=== PATIENT | female | born 1985 | race Caucasian/White ===

== ENCOUNTER 2016-05-04 14:00 | Observation (INO) | payer MEDICAID ==
[~2016-05-04] VITALS: Ht 175.3 cm; Wt 82.2 kg
[2016-05-04] VITALS (12 sets, daily range): BP systolic 119–141; BP diastolic 59–81
[2016-05-04 15:01] LABS: BASOPHILS # (AUTO) 0.1 10^3/uL (0.0-0.1); BASOPHILS % (AUTO) 0 % (0-10); EOSINOPHILS # (AUTO) 0.1 10^3/uL (0.0-0.3); EOSINOPHILS % (AUTO) 1 % (0-10); LYMPHOCYTES # (AUTO) 2.3 X 10^3 (1.0-4.0); LYMPHOCYTES % (AUTO) 13 % (12-44); MEAN CORPUSCULAR HEMOGLOBIN 29 PG (25-34); MEAN CORPUSCULAR HGB CONC 33 G/DL (32-36); MEAN CORPUSCULAR VOLUME 89 FL (80-99); MEAN PLATELET VOLUME 10.3 FL (7.4-10.4); MONOCYTES # (AUTO) 1.6 X 10^3 (0.0-1.0); MONOCYTES % (AUTO) 9 % (0-12); NEUTROPHILS # (AUTO) 14.1 X 10^3 (1.8-7.8); NEUTROPHILS % (AUTO) 78 % (42-75); PLATELET COUNT 301 10^3/uL (130-400); RED BLOOD COUNT 3.24 10^6/uL (4.35-5.85); RED CELL DISTRIBUTION WIDTH 12.7 % (10.0-14.5); WHITE BLOOD COUNT 18.1 10^3/uL (4.3-11.0)
[2016-05-04] MEDS ORDERED: FLU TRIvalent (5 YOA+) 2016-17 (AFLURIA) 0.5 ML IM ONE (15:15)
[2016-05-04] MEDS ORDERED: ONDANSETRON 4 MG/2 ML (SDV) Z0FRAN IVP ONE (16:45)
--- NOTE | 2016-05-04 16:52 | History & Physical-OB ---
OB - Chief Complaint & HPI Date Date of Admission: Date of Admission: May 04, 2016 at 2:00 pm Chief Complaint/History Hx : 3 Hx Para: 2 Expected Date of Delivery: May 23, 2016 Gestational Age in Weeks: 37 Other reason for admission: Regular uterine contractions and cervical dilation on exam in office with history of still at 36 weeks, and abnormal quad screen. GBS + and patient lives in [place]. Admission Nurse Assessment Rev: Yes History of Labs AB pos Antibody neg RI RPR NR HB and HCsAg NR HIV NR GC neg GBS + Allergies and Home Medications Allergies Coded Allergies: No Known Drug Allergies (Unverified , 05/04/16) OB - History Hx of Present Care: Yes Ultrasounds: Normal mid trimester US Obstetrical Complications: Other (abnormal quad screen) Medical Complications: None Obstetrical History Hx : 3 Hx Para: 2 Hx Total # of Abortions (Spona: 0 Patient Past Medical History n/a Social History/Family History Recent Infectious Disease Expo: No OB - Admission Exam Physical Exam Vitals: Vital Signs 05/04/16 05/04/16 14:05 15:00 Temp 97.5 Pulse 82 Resp 20 B/P (MAP) 132/75 O2 Delivery Room Air HEENT: NCAT Heart: Rhythm Normal Lungs: Clear Abdomen: Gravid Extremities: Normal Reflexes: Normal Cervical Dilatation: 3cm Effacement: 50% Station: -2 Membranes: Intact Heart Rate: 130's Accelerations: Accelerations Present Decelerations: No Decelerations Short Term Variability: Present Fdc Variability: Average (6-25) Contractions on Admission: < 5 Minutes Apart Intensity: Moderate Labs Laboratory Tests Test 05/04/16 14:37 Range/Units White Blood Count 18.1 H 4.3-11.0 10^3/uL Red Blood Count 3.24 L 4.35-5.85 10^6/uL Hemoglobin 9.4 L 11.5-16.0 G/DL Hematocrit 29 L 35-52 % Mean Corpuscular Volume 89 80-99 FL Mean Corpuscular Hemoglobin 29 25-34 PG Mean Corpuscular Hemoglobin Concent 33 32-36 G/DL Red Cell Distribution Width 12.7 10.0-14.5 % Platelet Count 301 130-400 10^3/uL Mean Platelet Volume 10.3 7.4-10.4 FL Neutrophils (%) (Auto) 78 H 42-75 % Lymphocytes (%) (Auto) 13 12-44 % Monocytes (%) (Auto) 9 0-12 % Eosinophils (%) (Auto) 1 0-10 % Basophils (%) (Auto) 0 0-10 % Neutrophils # (Auto) 14.1 H 1.8-7.8 X 10^3 Lymphocytes # (Auto) 2.3 1.0-4.0 X 10^3 Monocytes # (Auto) 1.6 H 0.0-1.0 X 10^3 Eosinophils # (Auto) 0.1 0.0-0.3 10^3/uL Basophils # (Auto) 0.1 0.0-0.1 10^3/uL OB - Assessment/Plan/Diagnosis Assessment Assessment: active labor, group B positive strep Plan Plan: Expectant Management Discharge Diagnosis Diagnosis: 30 yo ,1,1,1 Hx of Stillbirth Abnormal quad GBS + FENECH,PANDA Knowles DO May 04, 2016 4:52 pm
[2016-05-04] MEDS ORDERED: FAMO-119 PO (19:12)
[2016-05-04] MEDS ORDERED: ONDN4T PO (19:16)
[2016-05-05] VITALS (8 sets, daily range): BP systolic 117–131; BP diastolic 59–73
--- NOTE | 2016-05-05 09:19 | Progress Note-Standard ---
Standard Progress Note Progress Notes/Assess & Plan Progress/Assessment & Plan Patient comfortably sleeping this morning, reports that contractions have subsided. NST reactive overnight with irregular contractions noted. I discussed the patient discharge, and return to care immediately if any signs of labor should occur for GBS prophylaxis. The patient demonstrates understanding and will return to care in 1 week for visit or earlier if labor symptoms should occur. PANDA MOREL DO May 05, 2016 09:19
--- OUTSIDE RECORDS SUMMARY | 2016-05-19 18:19 | XMS REPORT | Continuity of Care Document ---
Author Author [facility] Organization [facility] Address Unknown Phone Unavailable Allergies Medications Problems Procedures Results Encounters ACCT No. Visit Date/Time Discharge Status Pt. Type Provider Facility Loc./Unit Complaint [id number] 01/05/2015 16:16:23 01/05/2015 23: 59:59 CLS Outpatient Juany Almaraz [id number] 09/17/2014 21:53:31 09/17/2014 23: 59:59 CLS Outpatient Anais Garcia [id number] 09/17/2014 21:43:50 09/17/2014 23: 59:59 CLS Outpatient Helen Prakash [id number] 02/16/2014 10:13:35 02/16/2014 23: 59:59 CLS Outpatient Helen Prakash [id number] 11/28/2013 15:59:12 11/28/2013 23: 59:59 CLS Outpatient Anais Garcia [id number] 10/09/2015 17:35:53 ACT Outpatient Fabiola Webster [id number] 10/02/2015 11:32:24 ACT Outpatient Anais Garcia
--- OUTSIDE RECORDS SUMMARY | 2016-05-19 18:20 | XMS REPORT | CCD ---
Author Author ABHISHEK DAVIS Organization Unknown Address [address] [place] [address] Care Team Providers Care Tool Procurement Coordinator Name Role Phone LIM, OLAMIDE DO Attphys LIM, OLAMIDE DO Prisurg Allergies Allergy Code Allergy Type Reaction Status No Known Allergies 0 Drug allergy Active Active Medications Unknown or Not Available. Problems Unknown or Not Available. Procedures Unknown or Not Available. Results Unknown or Not Available. Function Status Unknown or Not Available. History of Immunizations Immunization Code Date DTP 12/26/1986 DTP 02/24/1987 DTP 04/25/1987 DTP 01 05/11/1990 OPV 02 12/26/1986 OPV 02 02/24/1987 OPV 02 04/25/1987 OPV 02 05/11/1990 MMR 03 05/11/1990 MMR 03 09/15/1990 Hep B, adolescent or pediatric 08 01/16/2002 influenza, split (incl. purified surface antigen) 15 01/08/2010 DTaP-Hep B-IPV 110 08/09/2001 Tdap 115 01/08/2010 Plan of Treatment Unknown or Not Available. Social History Smoking Status Code Start Date End Date Former smoker [id number] Vital Signs Unknown or Not Available. Function Status Unknown or Not Available. Goals Unknown or Not Available. ASSESSMENTS Unknown or Not Available. Health Concerns Section Unknown or Not Available.
--- OUTSIDE RECORDS SUMMARY | 2016-05-19 18:20 | XMS REPORT ---
Author Author Anais Garcia [facility] Address [address] [place], [place] [id number] Care Team Providers Care Oral Surgery Technician Name Role Phone Anais Garcia PCP Unavailable Allergies and Adverse Reactions Name Reaction Notes NO KNOWN DRUG ALLERGIES Plan of Treatment Planned Activity Comments Planned Date Planned Time Plan/Goal CYTOPATH C/V THIN LAYER 10/02/2015 12:00 AM N.GONORRHOEAE DNA AMP PROB 10/02/2015 12:00 AM CHLAMYDIA CULTURE 10/02/2015 12:00 AM HIV-1ANTIBODY 10/02/2015 12:00 AM URINALYSIS AUTO W/SCOPE 10/02/2015 12:00 AM OBSTETRIC PANEL 10/02/2015 12:00 AM HEPATITIS C AB TEST 10/02/2015 12:00 AM VARICELLA-ZOSTER ANTIBODY 10/02/2015 12:00 AM Medications Name Start Date Expiration Date SIG Comments Zithromax Z-Jase 250 mg oral tablet 04/07/2010 04/12/2010 Take 2 tablets the first day (500 mg) followed by 1 tablet (250 mg) days 2-5. for 5 days Augmentin 875-125 mg oral tablet 05/12/2012 05/22/2012 take 1 tablet by oral route every 12 hours for 10 days clindamycin HCl 300 mg oral capsule 05/17/2012 05/27/2012 take 1 capsule (300 mg) by oral route every 6 hours for 10 days Cipro 500 mg oral tablet 07/05/2014 07/10/2014 take 1 tablet (500 mg) by oral route 2 times per day for 5 days Discontinued Name Start Date Discontinued Date SIG Comments hydrocodone-acetaminophen 5-325 mg oral tablet 05/16/2012 11/28/2013 take 1 tablet by oral route every 6 hours as needed for pain Mirena 20 mcg/24 hr (5 years) intrauterine intrauterine device 10/02/2015 Zoloft 50 mg oral tablet 02/16/2014 07/05/2014 take 1 tablet (50 mg) by oral route once daily increase Zoloft 100 mg oral tablet 10/02/2015 take 1 tablet (100 mg) by oral route once daily Problem List Description Status Onset Contraceptive education Active 07/19/2014 Vital Signs Date Time BP-Sys(mm[Hg] BP-Rosa(mm[Hg]) HR(bpm) RR(rpm) Temp WT HT HC BMI BSA BMI Percentile O2 Sat(%) 10/02/2015 10:37:00 AM 119 mmHg 72 mmHg 87 bpm 18 rpm 98.5 F 156 lbs 68 in 23.72 kg/m2 1.84 m2 07/19/2014 1:32:00 PM 118 mmHg 75 mmHg 80 bpm 18 rpm 98.2 F 143.125 lbs 68 in 21.7619 kg/m 1.7649 m 07/05/2014 2:07:00 PM 98 mmHg 68 mmHg 79 bpm 18 rpm 97.2 F 141 lbs 68 in 21.44 kg/m2 1.75 m2 99 % 02/16/2014 9:19:00 AM 100 mmHg 72 mmHg 77 bpm 18 rpm 97.5 F 137 lbs 68 in 20.8306 kg/m 1.7267 m 99 % 11/28/2013 3:23:00 PM 117 mmHg 77 mmHg 87 bpm 18 rpm 98.7 F 141 lbs 68 in 21.44 kg/m2 1.75 m2 05/18/2012 4:42:00 PM 120 mmHg 66 mmHg 70 bpm 16 rpm 97.4 F 05/16/2012 4:16:00 PM 97 bpm 18 rpm 98.6 F 174 lbs 68 in 26.4563 kg/m 1.95 m2 97 % 05/12/2012 2:38:00 PM 81 bpm 20 rpm 97.8 F 174.6 lbs 68 in 26.55 kg/m2 1.9493 m 97 % 04/07/2010 3:11:00 PM 110 mmHg 70 mmHg 111 bpm 16 rpm 99.6 F 148.312 lbs 68 in 22.5506 kg/m 1.80 m2 98 % Social History Name Description Comments Tobacco Former smoker History of Procedures Date Ordered Description Order Status 10/02/2015 11:59 AM URINE TEST Reviewed 05/12/2012 12:00 AM THER/PROPH/DIAG INJ SC/IM Reviewed 05/12/2012 12:00 AM Decadron, Per 1 Mg [facility]# [address]-19 Reviewed 05/12/2012 12:00 AM Depo-Medrol, Per 80 Mg [facility]#5958-9059-50 Reviewed 05/12/2012 12:00 AM Rocephin 500 Mg [facility]#7063-0491-98 Reviewed 05/16/2012 12:00 AM THER/PROPH/DIAG INJ SC/IM Reviewed 05/16/2012 12:00 AM Rocephin 500 Mg [facility]#2201-4541-39 Reviewed 05/17/2012 12:00 AM THER/PROPH/DIAG INJ SC/IM Reviewed 05/17/2012 12:00 AM Lincocin, Up to 300 Mg [facility]#0326-2840-94 Reviewed 02/16/2014 12:00 AM Mental Health Consult Reviewed 07/05/2014 2:48 PM URINALYSIS AUTO W/O SCOPE Reviewed 07/05/2014 2:49 PM URINE TEST Reviewed 07/05/2014 12:00 AM COMPLETE CBC W/AUTO DIFF WBC Returned 07/05/2014 12:00 AM COMPREHEN METABOLIC PANEL Returned 07/05/2014 12:00 AM URINE BACTERIA CULTURE Returned Results Summary Data and Description Results 07/05/2014 2:48 PM Bilirub Ur Ql Strip negative Clarity Ur cloudy Color Ur light yellow Glucose Ur-sCnc negative Hgb Ur Ql Strip negative Ketones Ur Ql Strip negative Nitrite Ur Ql Strip postive pH Ur-LsCnc 8 Prot Ur Ql Strip negative Sp Gr Ur Qn 1.010 Urobilinogen Ur-mCnc 0.2 WBC Est Ur Ql Strip trace 07/05/2014 2:49 PM Test, Urine negative 07/05/2014 3:27 PM WBC 8.0 RBC 4.25 HGB 12.60 g/dLHCT 39.0 %MCV 92.0 fLMCH 29.60 pgMCHC 32.30 g/dLRDW CV 12.50 %MPV 10.40 fLPLT 187 %NEUT 58.40 %%LYMP 31.0 %%MONO 8.50 %%EOS 2.0 %%BASO 0.10 %#NEUT 4.69 #LYMP 2.49 #MONO 0.68 #EOS 0.16 #BASO 0.01 GLUCOSE 78.0 mg/dLSODIUM 144.0 mmol/LPOTASSIUM 4.10 mmol/ LCHLORIDE 108.0 mmol/LCO2 25.0 mmol/LBUN 13.0 mg/dLCREATININE 0.70 mg/dLSGOT/ AST 16.0 IU/LSGPT/ALT 10.0 IU/LALK PHOS 45.0 IU/LTOTAL PROTEIN 7.20 g/dLALBUMIN 4.70 g/dLTOTAL BILI 0.30 mg/dLCALCIUM 9.70 mg/dLeGFR >60 mL/min/1.73 m2 10/02/2015 11:37 AM Pap Smear Collected 10/02/2015 11:59 AM Test, Urine positive History Of Immunizations Not available. History of Past Illness Name Date of Onset Comments Headache Contraceptive education 07/19/2014 Upper Respiratory Infections Apr 07 2010 3:17PM Dental abscess May 12 2012 2:42PM Dental abscess/pain May 16 2012 4:18PM Dental Disorder/Abscess May 17 2012 4:41PM Dental abscess May 18 2012 4:48PM Excessive Or Frequent Menstruation Nov 28 2013 3:26PM Anxiety Disorder Feb 16 2014 9:20AM Depressive Disorder Feb 16 2014 9:20AM Excessive anger Feb 16 2014 9:20AM Suicidal ideation Feb 16 2014 9:20AM Fatigue Jul 05 2014 2:08PM Lightheaded Jul 05 2014 2:08PM Weakness Jul 05 2014 2:08PM Nausea & vomiting Jul 05 2014 2:08PM Leukocytes in urine Jul 05 2014 2:08PM Contraceptive education Jul 19 2014 1:43PM test confirmed positive Oct 02 2015 10:44AM Payers Insurance Name Company Name Plan Name Plan Number Policy Number Policy Group Number Start Date [facility] - [facility]HC - Community Plan of [facility] Comm [id number] N/A [place] [employer] [place] [employer] Prog [id number] N/A [facility] [id number] N/A [employer] [facility] [id number] Friday, 2012 History of Encounters Visit Date Visit Type Provider 10/02/2015 Office visit Anais Garcia [employer] 10/02/2014 [facility] Juany Almaraz MD 07/19/2014 Office visit Anais Garcia [employer] 07/05/2014 Office visit Helen Prakash [employer]ATOR [employer] 02/16/2014 Office visit Helen Prakash [employer] 11/28/2013 Office visit Anais Garcia [employer] 05/18/2012 Nurse visit Helen Prakash [employer] 05/17/2012 Nurse visit Helen Prakash [employer] 05/16/2012 Office visit Heeln Prakash [employer] 05/13/2012 Voided Helen Prakash [employer] 05/12/2012 Office visit Helen Prakash [employer] 04/07/2010 Office visit Marline Berger MD 11/26/2008 Voided Maco Robledo MD 2008 Office visit Maco Robledo MD 10/11/2008 Office visit Maco Robledo MD 10/11/2008 [facility] Maco Robledo MD 10/08/2008 [facility] Maco Robledo MD
--- OUTSIDE RECORDS SUMMARY | 2016-05-19 18:20 | XMS REPORT ---
Author Author Helen Prakash [facility] Address [address] [place] [id number] Care Team Providers Care Applied Biology Professor Name Role Phone Helen Prakash PCP Unavailable Allergies and Adverse Reactions Name Reaction Notes NO KNOWN DRUG ALLERGIES Plan of Treatment Not available. Medications Active Name Start Date Estimated Completion Date SIG Comments Mirena intrauterine intrauterine device 20 mcg/24 hr (5 years) Zoloft oral tablet 100 mg take 1 tablet (100 mg) by oral route once daily Name Start Date Expiration Date SIG Comments Zithromax Z-Jase Oral Tab 250 MG 04/07/2010 04/12/2010 Take 2 tablets the first day (500 mg) followed by 1 tablet (250 mg) days 2-5. for 5 days Augmentin Oral tablet 875-125 mg 05/12/2012 05/22/2012 take 1 tablet by oral route every 12 hours for 10 days clindamycin HCl Oral capsule 300 mg 05/17/2012 05/27/2012 take 1 capsule (300 mg) by oral route every 6 hours for 10 days Cipro oral tablet 500 mg 07/05/2014 07/10/2014 take 1 tablet (500 mg) by oral route 2 times per day for 5 days Discontinued Name Start Date Discontinued Date SIG Comments hydrocodone-acetaminophen Oral tablet 5-325 mg 05/16/2012 11/28/2013 take 1 tablet by oral route every 6 hours as needed for pain Zoloft oral tablet 50 mg 02/16/2014 07/05/2014 take 1 tablet (50 mg) by oral route once daily increase Problem List Description Status Onset Contraceptive education Active 07/19/2014 Vital Signs Date Time BP-Sys(mm[Hg] BP-Rosa(mm[Hg]) HR(bpm) RR(rpm) Temp WT HT HC BMI BSA BMI Percentile O2 Sat(%) 07/19/2014 1:32:00 PM 118 mmHg 75 mmHg 80 bpm 18 rpm 98.2 F 143.125 lbs 68 in 21.76 kg/m2 1.76 m2 07/05/2014 2:07:00 PM 98 mmHg 68 mmHg 79 bpm 18 rpm 97.2 F 141 lbs 68 in 21.4388 kg/m 1.7517 m 99 % 02/16/2014 9:19:00 AM 100 mmHg 72 mmHg 77 bpm 18 rpm 97.5 F 137 lbs 68 in 20.83 kg/m2 1.73 m2 99 % 11/28/2013 3:23:00 PM 117 mmHg 77 mmHg 87 bpm 18 rpm 98.7 F 141 lbs 68 in 21.4388 kg/m 1.7517 m 05/18/2012 4:42:00 PM 120 mmHg 66 mmHg 70 bpm 16 rpm 97.4 F 05/16/2012 4:16:00 PM 97 bpm 18 rpm 98.6 F 174 lbs 68 in 26.4563 kg/m 1.9459 m 97 % 05/12/2012 2:38:00 PM 81 bpm 20 rpm 97.8 F 174.6 lbs 68 in 26.55 kg/m2 1.95 m2 97 % 04/07/2010 3:11:00 PM 110 mmHg 70 mmHg 111 bpm 16 rpm 99.6 F 148.312 lbs 68 in 22.5506 kg/m 1.7966 m 98 % Social History Name Description Comments Tobacco Former smoker History of Procedures Date Ordered Description Order Status 05/12/2012 12:00 AM THER/PROPH/DIAG INJ SC/IM Reviewed 05/16/2012 12:00 AM THER/PROPH/DIAG INJ SC/IM Reviewed 05/17/2012 12:00 AM THER/PROPH/DIAG INJ SC/IM Reviewed 07/05/2014 2:48 PM URINALYSIS AUTO W/O [...] 0.30 mg/dLCALCIUM 9.70 mg/dLeGFR >60 mL/min/1.73 m2 History Of Immunizations Not available. History of [...] 2:08PM Contraceptive education Jul 19 2014 1:43PM Payers Insurance Name Company Name Plan Name Plan Number Policy Number Policy Group Number Start Date [facility] [place] [id number] Friday, 2012 [place] Medical Assistance Program [facility] [id number] N/[facility] [id number] N/A History of Encounters Visit Date Visit Type Provider 07/19/2014 Office visit Anais Garcia GLASSWARE MAKER 07/05/2014 Office visit Helen Prakash GLASSWARE MAKER 02/16/2014 Office visit Helen Prakash GLASSWARE MAKER 11/28/2013 Office visit Anais Garcia GLASSWARE MAKER 05/18/2012 Nurse visit Helen Prakash GLASSWARE MAKER 05/17/2012 Nurse visit Helen Prakash GLASSWARE MAKER 05/16/2012 Office visit Helen Prakash GLASSWARE MAKER 05/13/2012 Voided Helen Prakash GLASSWARE MAKER 05/12/2012 Office visit Helen Prakash GLASSWARE MAKER 04/07/2010 Office visit Marline Berger MD 11/26/2008 Voided Maco Robledo MD 2008 Office visit Maco Robledo MD 10/11/2008 Office visit Maco Robledo MD 10/11/2008 [facility] Maco Robledo MD 10/08/2008 [facility] Maco Robledo MD
--- OUTSIDE RECORDS SUMMARY | 2016-05-19 18:20 | XMS REPORT ---
Author Author HUMAIRA CASTELAN [facility] Address [address] [place] [address] Care Team Providers Care Finishing Powder Press Operator Name Role Phone HUMAIRA CASTELAN Unavailable PROBLEMS Unknown Problems ALLERGIES Unknown Allergies SOCIAL HISTORY No smoking Hx information available PLAN OF CARE VITAL SIGNS MEDICATIONS Unknown Medications RESULTS No Results PROCEDURES No Known procedures IMMUNIZATIONS No Known Immunizations
--- OUTSIDE RECORDS SUMMARY | 2016-05-19 18:20 | XMS REPORT ---
Author Author Fabiola Abebe Organization [facility] Address [address] [place], [place] [phone] Care Team Providers Care Parts Interpreter Name Role Phone Fabiola Abebe PCP Unavailable Allergies and Adverse Reactions Name Reaction Notes NO KNOWN DRUG ALLERGIES Plan of Treatment Planned Activity Comments Planned Date Planned Time Plan/Goal VARICELLA-ZOSTER ANTIBODY 10/02/2015 12:00 AM Medications Name [...] Status 10/02/2015 11:59 AM URINE TEST Reviewed 10/02/2015 12:00 AM CYTOPATH C/V THIN LAYER Returned 10/02/2015 12:00 AM N.GONORRHOEAE DNA AMP PROB Returned 10/02/2015 12:00 AM CHLAMYDIA CULTURE Returned 10/02/2015 12:00 AM HIV-1ANTIBODY Returned 10/02/2015 12:00 AM URINALYSIS AUTO W/SCOPE Returned 10/02/2015 12:00 AM OBSTETRIC PANEL Returned 10/02/2015 12:00 AM HEPATITIS C AB TEST Returned 05/12/2012 12:00 AM THER/PROPH/DIAG INJ SC/IM Reviewed 05/12/2012 12:00 AM Decadron, Per 1 Mg [facility]# [address]-57 Reviewed 05/12/2012 12:00 AM Depo-Medrol, Per 80 Mg [facility]#0151-6542-03 Reviewed 05/12/2012 12:00 AM Rocephin 500 Mg [facility]#7419-9247-94 Reviewed 05/16/2012 12:00 AM THER/PROPH/DIAG INJ SC/IM Reviewed 05/16/2012 12:00 AM Rocephin 500 Mg [facility]#0291-0871-59 Reviewed 05/17/2012 12:00 AM THER/PROPH/DIAG INJ SC/IM Reviewed 05/17/2012 12:00 AM Lincocin, Up to 300 Mg [facility]#7864-8301-74 Reviewed 02/16/2014 12:00 AM Mental Health Consult [...] Collected 10/02/2015 11:59 AM Test, Urine positive 10/02/2015 12:15 PM WBC 10.7 RBC 4.42 HGB 13.40 g/dLHCT 39.20 %MCV 89.0 fLMCH 30.30 pgMCHC 34.20 g/dLRDW CV 11.90 %MPV 10.20 fLPLT 240 %NEUT 69.90 %%LYMP 18.80 %%MONO 9.70 %%EOS 1.40 %%BASO 0.20 %#NEUT 7.48 #LYMP 2.01 #MONO 1.04 #EOS 0.15 #BASO 0.02 COLOR YELLOW APPEARANCE CLEAR SPEC GRAV >=1.030 pH 6.0 PROTEIN NEGATIVE GLUCOSE NEGATIVE mg/dLKETONE >=80 BILIRUBIN SMALL BLOOD SMALL NITRITE NEGATIVE LEUK SCREEN NEGATIVE CASTS/LPF NEGATIVE /LPFCRYSTALS NEGATIVE MUCOUS THRDS 1+ BACTERIA FEW EPITH CELLS 1+ SQUAMOUS /HPFTRICHOMONAS NEGATIVE YEAST NEGATIVE HEPATITIS C 0.45 HIV AG/AB COMBO 0.09 RPR Non Reactive HBsAg Screen Negative Varicella Zoster IgG 543.0 IndexRubella Antibodies, IgG 1.30 Index History Of Immunizations Not available. History of [...] Policy Number Policy Group Number Start Date [place] Medical [place] Prog [id number] N/A [facility] [id number] N/A BCBS [employer] [place] [id number] Friday, 2012 [facility] - C - Community Plan [facility] RHC Comm [id number] N/A History of Encounters Visit Date Visit Type Provider 10/09/2015 Office visit Fabiola Abebe DO 10/02/2015 Office visit Anais Garcia CLOTH SHRINKING MACHINE OPERATOR 10/02/2014 [facility] Juany Almaraz MD 07/19/2014 Office visit Anais Garcia CLOTH SHRINKING MACHINE OPERATOR 07/05/2014 Office visit Helen Prakash CLOTH SHRINKING MACHINE OPERATOR 02/16/2014 Office visit Helen Prakash CLOTH SHRINKING MACHINE OPERATOR 11/28/2013 Office visit Anais Garcia CLOTH SHRINKING MACHINE OPERATOR 05/18/2012 Nurse visit Helen Prakash CLOTH SHRINKING MACHINE OPERATOR 05/17/2012 Nurse visit Helen Prakash CLOTH SHRINKING MACHINE OPERATOR 05/16/2012 Office visit Helen Prakash CLOTH SHRINKING MACHINE OPERATOR 05/13/2012 Voided Helen Prakash CLOTH SHRINKING MACHINE OPERATOR 05/12/2012 Office visit Helen Prakash CLOTH SHRINKING MACHINE OPERATOR 04/07/2010 Office visit Marline Berger MD 11/26/2008 Voided Maco Robledo MD 2008 Office visit Maco Robledo MD 10/11/2008 Office visit Maco Robledo MD 10/11/2008 [facility] Maco Robledo MD 10/08/2008 [facility] Maco Robledo MD
--- OUTSIDE RECORDS SUMMARY | 2016-05-19 18:21 | XMS REPORT ---
Author Author Anais Garcia [facility] Address [address] [place], [place] [address] Care Team Providers Care Ball Points Inspector Name Role Phone Anais Garcia PCP Unavailable [...] 05/12/2012 12:00 AM Decadron, Per [address] [facility]# [address]-08 Reviewed 05/12/2012 12:00 AM Depo-Medrol, Per [address] [facility]#2769-6775-26 Reviewed 05/12/2012 12:[address] [facility]#8235-4417-09 Reviewed 05/16/2012 12:00 AM THER/PROPH/DIAG INJ SC/IM Reviewed 05/16/2012 12:[address] [facility]#5879-0726-05 Reviewed 05/17/2012 12:00 AM THER/PROPH/DIAG INJ SC/IM Reviewed 05/17/2012 12:00 AM Lincocin, Up to [address] [facility]#6443-4283-93 Reviewed 02/16/2014 12:00 AM Mental Health Consult [...] Policy Number Policy Group Number Start Date [facility] - RHC - Community Plan of [facility] Comm [id number] N/A [place] Medical [place] Prog [id number] N/A [facility] [id number] N/A BCBS [facility]bs [facility] [id number] Friday, 2012 History of Encounters Visit Date Visit Type Provider 10/02/2015 Office visit Anais Garcia MARKETING PR INTERN 10/02/2014 [facility] Juany Almaraz MD 07/19/2014 Office visit Anais Garcia MARKETING PR INTERN 07/05/2014 Office visit Helen Prakash MARKETING PR INTERN 02/16/2014 Office visit Helen Prakash MARKETING PR INTERN 11/28/2013 Office visit Anais Garcia MARKETING PR INTERN 05/18/2012 Nurse visit Helen Prakash MARKETING PR INTERN 05/17/2012 Nurse visit Helen Prakash MARKETING PR INTERN 05/16/2012 Office visit Helen Prakash MARKETING PR INTERN 05/13/2012 Voided Helen Prakash MARKETING PR INTERN 05/12/2012 Office visit Helen Prakash MARKETING PR INTERN 04/07/2010 Office visit Marline Berger MD 11/26/2008 Voided Maco Robledo MD 2008 Office visit Maco Robledo MD 10/11/2008 Office visit Maco Robledo MD 10/11/2008 [facility] Maco Robledo MD 10/08/2008 [facility] Maco Robledo MD
--- OUTSIDE RECORDS SUMMARY | 2016-05-19 18:21 | XMS REPORT ---
Author Author HUMAIRA CASTELAN [facility] eClinicalWorks Address Unknown Phone Unavailable Care Team Providers Care Printed Circuit Boards Laminator Name Role Phone HUMAIRA CASTELAN CP Unavailable Allergies No Known Allergies Problems Problem Type Condition Code Onset Dates Condition Status Assessment Positive test Z32.01 Active Medications No Known Medications Procedures Procedure Coding System Code Date URINE TEST CPT-4 53913 Sep 30, 2015 Results No Known Results Summary Purpose eClinicalWorks Submission
--- OUTSIDE RECORDS SUMMARY | 2016-05-19 18:21 | XMS REPORT ---
Author Author Anais Garcia [facility] Address [address] [place], [place] [address] Care Team Providers Care Rotor Coil Taper Name Role Phone Anais Garcia PCP Unavailable Allergies and Adverse Reactions Name Reaction Notes NO KNOWN DRUG ALLERGIES Plan of Treatment Not available. Medications Name Start Date Expiration Date SIG [...] Decadron, Per 1 Mg [facility]# [address]-89 Reviewed 05/12/2012 12:00 AM Depo-Medrol, Per 80 Mg [place]#2049-4609-14 Reviewed 05/12/2012 12:00 AM Rocephin 500 Mg [place]#6484-6136-62 Reviewed 05/16/2012 12:00 AM THER/PROPH/DIAG INJ SC/IM Reviewed 05/16/2012 12:00 AM Rocephin 500 Mg [place]#6480-7557-88 Reviewed 05/17/2012 12:00 AM THER/PROPH/DIAG INJ SC/IM Reviewed 05/17/2012 12:00 AM Lincocin, Up to 300 Mg [facility]#3363-0098-31 Reviewed 02/16/2014 12:00 AM Mental Health Consult [...] Policy Number Policy Group Number Start Date [place] [facility] Prog [id number] N/A [facility] [id number] N/A BCBS Bcbs [facility] [id number] Friday, 2012 History of Encounters Visit Date Visit Type Provider 10/02/2015 Office visit Anais Garcia WIRE COATING MACHINE OPERATOR 10/02/2014 [facility] Juany Almaraz MD 07/19/2014 Office visit Anais Garcia WIRE COATING MACHINE OPERATOR 07/05/2014 Office visit Helen Prakash WIRE COATING MACHINE OPERATOR 02/16/2014 Office visit Helen Prakash WIRE COATING MACHINE OPERATOR 11/28/2013 Office visit Anais Garcia WIRE COATING MACHINE OPERATOR 05/18/2012 Nurse visit Helen Prakash WIRE COATING MACHINE OPERATOR 05/17/2012 Nurse visit Helen Prakash WIRE COATING MACHINE OPERATOR 05/16/2012 Office visit Helen Prakash WIRE COATING MACHINE OPERATOR 05/13/2012 Voided Helen Prakash WIRE COATING MACHINE OPERATOR 05/12/2012 Office visit Helen Prakash WIRE COATING MACHINE OPERATOR 04/07/2010 Office visit Marline Berger MD 11/26/2008 Voided Maco Robledo MD 2008 Office visit Maco Robledo MD 10/11/2008 Office visit Maco Robledo MD 10/11/2008 [facility] Maco Robledo MD 10/08/2008 [facility] Maco Robledo MD
--- OUTSIDE RECORDS SUMMARY | 2016-05-19 18:21 | XMS REPORT ---
Author Author Helen Prakash [facility] Address [address] [place] [id number] Care Team Providers Care Blanket Cutting Machine Operator Name Role Phone Helen Prakash PCP Unavailable Allergies and Adverse Reactions Name Reaction Notes NO KNOWN DRUG ALLERGIES Plan of Treatment Planned Activity Comments Planned Date Planned Time Plan/Goal COMPLETE CBC W/AUTO DIFF WBC 07/05/2014 12:00 AM COMPREHEN METABOLIC PANEL 07/05/2014 12:00 AM URINE BACTERIA CULTURE 07/05/2014 12:00 AM Medications Active Name Start Date Estimated Completion Date SIG Comments Mirena intrauterine intrauterine device 20 mcg/24 hr (5 years) Zoloft oral tablet 100 mg take 1 tablet (100 mg) by oral route once daily Cipro oral tablet 500 mg 07/05/2014 07/10/2014 take 1 tablet (500 mg) by oral route 2 times per day for 5 days Name Start Date Expiration Date SIG Comments [...] route every 6 hours for 10 days Discontinued Name Start Date Discontinued Date SIG Comments hydrocodone-acetaminophen Oral tablet 5-325 mg 05/16/2012 11/28/2013 take 1 tablet by oral route every 6 hours as needed for pain Zoloft oral tablet 50 mg 02/16/2014 07/05/2014 take 1 tablet (50 mg) by oral route once daily increase Problem List Not available. Vital Signs Date Time BP-Sys(mm[Hg] BP-Rosa(mm[Hg]) HR(bpm) RR(rpm) Temp WT HT HC BMI BSA BMI Percentile O2 Sat(%) 07/05/2014 2:07:00 PM 98 mmHg 68 mmHg [...] rpm 98.6 F 174 lbs 68 in 26.46 kg /m2 1.95 m2 97 % 05/12/2012 2:38:00 PM 81 bpm 20 rpm 97.8 F 174.6 lbs 68 in 26.5476 kg/m 1.9493 m 97 % 04/07/2010 3:11:00 PM 110 mmHg 70 mmHg 111 bpm 16 rpm 99.6 F 148.312 lbs 68 in 22.55 kg/m2 1.80 m2 98 % Social History Name Description Comments Tobacco Former smoker History of Procedures Date Ordered Description Order Status 05/12/2012 12:00 AM THER/PROPH/DIAG INJ SC/IM Reviewed 05/16/2012 12:00 AM THER/PROPH/DIAG INJ SC/IM Reviewed 05/17/2012 12:00 AM THER/PROPH/DIAG INJ SC/IM Reviewed 07/05/2014 2:48 PM URINALYSIS AUTO W/O SCOPE Reviewed 07/05/2014 2:49 PM URINE TEST Reviewed Results Summary Data and Description Results 07/05/2014 [...] trace 07/05/2014 2:49 PM Test, Urine negative History Of Immunizations Not available. History of Past Illness Name Date of Onset Comments Headache Upper Respiratory Infections Apr 07 2010 3:17PM [...] Leukocytes in urine Jul 05 2014 2:08PM Payers Insurance Name Company Name Plan Name Plan Number Policy Number Policy Group Number Start Date [employer] [facility] [place] [id number] Friday, 2012 [place] Medical Assistance [facility] Medical [facility] Prog [id number] N/A [facility] [id number] N/A History of Encounters Visit Date Visit Type Provider 07/05/2014 Office visit Helen Prakash CLIENT TECHNOLOGIES ANALYST 02/16/2014 Office visit Helen Prakash CLIENT TECHNOLOGIES ANALYST 11/28/2013 Office visit Anais Garcia CLIENT TECHNOLOGIES ANALYST 05/18/2012 Nurse visit Helen Prakash CLIENT TECHNOLOGIES ANALYST 05/17/2012 Nurse visit Helen Prakash CLIENT TECHNOLOGIES ANALYST 05/16/2012 Office visit Helen Prakash CLIENT TECHNOLOGIES ANALYST 05/13/2012 Voided Helen Prakash CLIENT TECHNOLOGIES ANALYST 05/12/2012 Office visit Helen Prakash CLIENT TECHNOLOGIES ANALYST 04/07/2010 Office visit Marline Berger MD 11/26/2008 Voided Maco Robledo MD 2008 Office visit Maco Robledo MD 10/11/2008 Office visit Maco Robledo MD 10/11/2008 [facility] Maco Robledo MD 10/08/2008 [facility] Maco Robledo MD
--- OUTSIDE RECORDS SUMMARY | 2016-05-19 18:22 | XMS REPORT ---
Author Author Fabiola Abebe Organization [facility] Address [address] [place], [place] [address] Care Team Providers Care Enrollment Advisor Name Role Phone Fabiola Abebe PCP Unavailable [...] 05/12/2012 12:00 AM Decadron, Per 1 Mg [facility]# [address]-59 Reviewed 05/12/2012 12:00 AM Depo-Medrol, Per 80 Mg [facility]#4432-3143-99 Reviewed 05/12/2012 12:00 AM Rocephin 500 Mg [facility]#4714-0828-58 Reviewed 05/16/2012 12:00 AM THER/PROPH/DIAG INJ SC/IM Reviewed 05/16/2012 12:00 AM Rocephin 500 Mg [facility]#5627-0791-72 Reviewed 05/17/2012 12:00 AM THER/PROPH/DIAG INJ SC/IM Reviewed 05/17/2012 12:00 AM Lincocin, Up to 300 Mg [facility]#6475-5671-11 Reviewed 02/16/2014 12:00 AM Mental Health Consult [...] Policy Number Policy Group Number Start Date [place] Prog [id number] N/A [facility] [id number] N/A BCBS [employer] [facility] [place] [id number] Friday, 2012 [facility] [id number] N/A History of Encounters Visit Date Visit Type Provider 10/09/2015 Voided Fabiola Abebe DO 10/02/2015 Office visit Anais Garcia COAL PASSER 10/02/2014 [facility] Juany Almaraz MD 07/19/2014 Office visit Anais Garcia COAL PASSER 07/05/2014 Office visit Helen Prakash COAL PASSER 02/16/2014 Office visit Helen Prakash COAL PASSER 11/28/2013 Office visit Anais Garcia COAL PASSER 05/18/2012 Nurse visit Helen Prakash COAL PASSER 05/17/2012 Nurse visit Helen Prakash COAL PASSER 05/16/2012 Office visit Helen Prakash COAL PASSER 05/13/2012 Voided Helen Prakash COAL PASSER 05/12/2012 Office visit Helen Prakash COAL PASSER 04/07/2010 Office visit Marline Berger MD 11/26/2008 Voided Maco Robledo MD 2008 Office visit Maco Robledo MD 10/11/2008 Office visit Maco Robledo MD 10/11/2008 [facility] Maco Robledo MD 10/08/2008 [facility] Maco Robledo MD
[2016-05-21] MEDS ORDERED: IBUP-1773 PO (15:03)
[2016-05-21] MEDS ORDERED: DOCU100C37 PO (15:03)
[2016-05-21] MEDS ORDERED: FERR-74 PO (15:03)
[2016-05-21] MEDS ORDERED: HYDR-3812 PO (15:03)
== END 2016-05-05 08:42 | disposition home or self-care (01) ==
LOC: DELPENDDIS → LDRP 14:00
PROVIDERS: ADMIT Obstetrics & Gynecology; ATTEND Obstetrics & Gynecology
DX: O47.1 False labor at or after 37 completed weeks of gestation (principal); O99.820 Streptococcus B carrier state complicating pregnancy; O09.293 Supervision of pregnancy with other poor reproductive or obstetric history, third trimester; Z3A.37 37 weeks gestation of pregnancy
CPT/HCPCS: 36415; 85025; 86850; 86900; 86901; 96374; 99211; G0378

== ENCOUNTER 2016-05-06 09:57 | Outpatient (CLI) | payer MEDICAID ==
[~2016-05-06] VITALS: Ht 175.3 cm; Wt 81.7 kg
[~2016-05-06 09:57] MED LIST: FAMO-119 PO; ONDN4T PO
[2016-05-06 10:15] VITALS: BP 119/68
[2016-05-06] MEDS ORDERED: morphine INJ 10 MG/ML 1ML (SYR OR VIAL) ONE (10:39)
[2016-05-06] MEDS ORDERED: morphine INJ 5 MG/ML 1 ML VIAL IVP ONE (10:45)
[2016-05-06] MEDS ORDERED: FLU TRIvalent (5 YOA+) 2016-17 (AFLURIA) 0.5 ML IM ONE (10:45)
[2016-05-06] MEDS ORDERED: NS IV 500 ML 500 ML IV SCH (10:45)
[2016-05-06 10:50] VITALS: BP 117/71
[2016-05-06 11:20] VITALS: BP 131/68
--- NOTE | 2016-05-06 12:38 | History & Physical-OB ---
OB - Chief Complaint & HPI Date Date of Admission: 05/06/2016Date of Admission: Chief Complaint/History OB-Reason for Admission/Chief: Uterine contractions. Irregular Hx : 3 Hx Para: 1 Expected Date of Delivery: May 23, 2016 Gestational Age in Weeks: 37 Gestational Age in Days: 4 Admission Nurse Assessment Rev: Yes History of Labs AB pos Antibody neg Allergies and Home Medications Allergies Coded Allergies: No Known Drug Allergies (Unverified , 05/04/16) Home Medications Famotidine 20 Mg Tablet, 20 MG PO DAILY, (Reported) Ondansetron HCl 4 Mg Tab, 4 MG PO DAILY, (Reported) OB - History Hx of Present Care: Yes Ultrasounds: Normal mid trimester US Obstetrical Complications: Other (Abn Quad screen) Medical Complications: None Obstetrical History Hx : 3 Hx Para: 1 Hx Total # of Abortions (Spona: 1 Patient Past Medical History n/a Social History/Family History Recent Infectious Disease Expo: No OB - Admission Exam Physical Exam HEENT: NCAT Heart: Rhythm Normal Lungs: Clear Abdomen: Gravid Cervical Dilatation: 3cm Effacement: 50% Station: Ballotable Membranes: Intact Heart Rate: 140's Accelerations: Accelerations Present Decelerations: No Decelerations Short Term Variability: Present Contractions on Admission: >10 Minutes Apart Intensity: Mild OB - Assessment/Plan/Diagnosis Assessment Assessment: observation Plan Plan: Expectant Management Discharge Diagnosis Diagnosis: 30 yo @ 37.4 Uterine contractions without active labor Term Abn QUad screen GBS + FENKELECHIPANDA Knowles DO May 06, 2016 12:38
[2016-05-06 13:10] VITALS: BP 131/68
== END 2016-05-06 13:10 | disposition home or self-care (01) ==
LOC: DELPENDDIS → WSo 09:57 → LDRP 09:57 → WSo 13:10
PROVIDERS: ATTEND Obstetrics & Gynecology
DX: O47.1 False labor at or after 37 completed weeks of gestation (principal); O99.820 Streptococcus B carrier state complicating pregnancy; Z3A.37 37 weeks gestation of pregnancy
CPT/HCPCS: 96361; 96374; 99214

== ENCOUNTER 2016-05-18 20:00 | Inpatient (IN) | payer MEDICAID ==
[2016-05-18] VITALS (8 sets, daily range): BP systolic 127–156; BP diastolic 73–89
[~2016-05-18] VITALS: Ht 175.3 cm; Wt 82.6 kg
[2016-05-18] MEDS ORDERED: LACTATED RINGERS 1,000 ML IV SCH (20:20)
[2016-05-18] MEDS ORDERED: AMPICILLIN INJECTION 2,000 MG in NS (IVPB) 50 ML IV SCH (20:20)
[2016-05-18] MEDS ORDERED: NS (IVPB) 50 ML ONE (20:29)
[2016-05-18] MEDS ORDERED: AMPICILLIN 2000 MG INJECTION (IM/IV) ONE (20:29)
[2016-05-18] MEDS: D5 LR IV SOLUTION 1,000 ML IV SCH (21:00)
[2016-05-18 21:24] LABS: BASOPHILS # (AUTO) 0.1 10^3/uL (0.0-0.1); BASOPHILS % (AUTO) 0 % (0-10); EOSINOPHILS # (AUTO) 0.1 10^3/uL (0.0-0.3); EOSINOPHILS % (AUTO) 1 % (0-10); LYMPHOCYTES # (AUTO) 2.5 X 10^3 (1.0-4.0); LYMPHOCYTES % (AUTO) 17 % (12-44); MEAN CORPUSCULAR HEMOGLOBIN 28 PG (25-34); MEAN CORPUSCULAR HGB CONC 32 G/DL (32-36); MEAN CORPUSCULAR VOLUME 89 FL (80-99); MEAN PLATELET VOLUME 10.6 FL (7.4-10.4); MONOCYTES # (AUTO) 1.6 X 10^3 (0.0-1.0); MONOCYTES % (AUTO) 10 % (0-12); NEUTROPHILS # (AUTO) 10.7 X 10^3 (1.8-7.8); NEUTROPHILS % (AUTO) 72 % (42-75); PLATELET COUNT 314 10^3/uL (130-400); RED CELL DISTRIBUTION WIDTH 12.8 % (10.0-14.5); WHITE BLOOD COUNT 14.9 10^3/uL (4.3-11.0)
[2016-05-18] MEDS ORDERED: CALCIUM CARBONATE 500 MG (TUMS) TAB.CHEW PO PRN (21:30)
[2016-05-18 21:57] LABS: BAND NEUTROPHILS 5 %; BASOPHILS % (MANUAL) 0 %; EOSINOPHILS % (MANUAL) 0 %; HYPOCHROMASIA SLIGHT; LYMPHOCYTES % (MANUAL) 20 %; NEUTROPHILS % (MANUAL) 74 %; POLYCHROMASIA SLIGHT
[2016-05-18] MEDS ORDERED: CATHETER FLUSH 10 ML SYR IV SCH (22:00)
[2016-05-18] MEDS ORDERED: MISOPROSTOL 100 MCG (CYTOTEC) TAB PO ONE (22:00)
[2016-05-19] VITALS (48 sets, daily range): BP systolic 15–192; BP diastolic 64–144
[2016-05-19] MEDS ORDERED: ONDANSETRON 4 MG/2 ML (SDV) Z0FRAN IVP PRN (00:55)
[2016-05-19] MEDS ORDERED: AMPICILLIN 1000 MG INJECTION (IV/IM) ONE ×2 (00:58→04:41)
[2016-05-19] MEDS ORDERED: NS (IVPB) 50 ML ONE ×2 (00:59→04:41)
[2016-05-19] MEDS ORDERED: ONDANSETRON 4 MG/2 ML (SDV) Z0FRAN ONE (01:00)
[2016-05-19] MEDS: AMPICILLIN INJECTION 1,000 MG in NS (IVPB) 50 ML IV SCH ×2 (01:10→04:55)
[2016-05-19] MEDS ORDERED: SUFENTA 0.6MCG/ML BUPIVA 0.125 100 ML ONE (01:14)
[2016-05-19] MEDS ORDERED: fentaNYL INJECTION 100 MCG/2 ML AMP ONE (02:06)
[2016-05-19] MEDS ORDERED: LACTATED RINGERS 1,000 ML IV SCH (02:39)
[2016-05-19] MEDS ORDERED: diphenhydrAMINE 50 MG/ML INJ (BENADRYL) IV PRN (02:45)
[2016-05-19] MEDS ORDERED: EPIDURAL (SUFENTA 0.6MCG/ML BUPIVA 0.125%) 100 ML BAG EPI PRN (02:45)
[2016-05-19] MEDS ORDERED: NALOXONE 0.4 MG/ML 1 ML (NARCAN) VIAL IV PRN (02:45)
[2016-05-19] MEDS ORDERED: ONDANSETRON 4 MG/2 ML (SDV) Z0FRAN IV PRN (02:45)
[2016-05-19] MEDS: D5 LR IV SOLUTION 1,000 ML IV SCH (05:30)
[2016-05-19] MEDS ORDERED: OXYTOCIN/NORMAL SALINE 500 ML IV SCH ×2 (08:00→12:14)
[2016-05-19] MEDS ORDERED: LIDOCAINE/EPI 1%-1:200,000 (XYLOCAINE) 30 ML VIAL ONE (11:07)
[2016-05-19] MEDS ORDERED: TETANUS,DIPTH,PERTUSS P/F (BOOSTRIX) 0.5 ML VIAL IM ONE (12:15)
[2016-05-19] MEDS ORDERED: DIBUCAINE (NUPERCAINAL) 1% OINT 30 GM TOP PRN (12:15)
[2016-05-19] MEDS ORDERED: WITCH HAZEL(TUCKS) 40 EA JAR TOP PRN (12:15)
[2016-05-19] MEDS ORDERED: MEASLES,MUMPS,RUBELLA 1 EA INJ SQ ONE (12:15)
[2016-05-19] MEDS ORDERED: APAP 300 MG/CODEINE 30 MG (TYLENOL #3) TAB PO PRN (12:15)
[2016-05-19] MEDS ORDERED: BENZOCAINE/MENTHOL (DERMOPLAST) 56 ML CAN TP PRN (12:15)
--- NOTE | 2016-05-19 12:28 | History & Physical-OB ---
OB - Chief Complaint & HPI Date Date of Admission: Date of Admission: May 18, 2016 at 20:00 Chief Complaint/History OB-Reason for Admission/Chief: Induction of Labor Hx : 3 Hx Para: 1 Expected Date of Delivery: May 23, 2016 Gestational Age in Weeks: 39 Indication for induction: maternal discomfort Admission Nurse Assessment Rev: Yes History of Labs AB pos Antibody neg RI RPR NR HBsAg NR HIV NR GC neg GBS pos Allergies and Home Medications Allergies Coded Allergies: No Known Drug Allergies (Unverified , 05/04/16) Home Medications Famotidine 20 Mg Tablet, 20 MG PO DAILY, (Reported) Ondansetron HCl 4 Mg Tab, 4 MG PO DAILY, (Reported) OB - History Hx of Present Care: Yes Ultrasounds: Normal mid trimester US Obstetrical Complications: None (abnormal quad screen, history of stillborn) Medical Complications: None Patient Past Medical History n/a Social History/Family History Recent Infectious Disease Expo: No Alcohol Use: Denies Use Recreational Drug Use: No OB - Admission Exam Physical Exam Vitals: Vital Signs 05/19/16 05/19/16 07:30 09:30 Temp 98.5 Pulse 65 Resp 20 B/P (MAP) 143/78 Pulse Ox 97 O2 Delivery Room Air HEENT: NCAT Heart: Rhythm Normal Lungs: Clear Abdomen: Gravid Extremities: Normal Reflexes: Normal Cervical Dilatation: 3cm Effacement: 75% Station: -1 Membranes: Intact Heart Rate: 130's Accelerations: Accelerations Present Decelerations: No Decelerations Splicing Supervisor Variability: Average (6-25) Contractions on Admission: 6-10 Minutes Apart Intensity: Mild Frnech Scoring Tool (Modified) Dilation (cm): 3-4cm (2) Effacement (%): 51-79% (2) Descent/Station: -1,0 (2) Cervix Consistency: Soft (2) Cervix Position: Anterior (2) Add 1 point for: Each previous vaginal delivery (1) French Score: 11 Labs Laboratory Tests Test 05/18/16 20:55 Range/Units White Blood Count 14.9 H 4.3-11.0 10^3/uL Red Blood Count 3.00 L 4.35-5.85 10^6/uL Hemoglobin 8.5 L 11.5-16.0 G/DL Hematocrit 27 L 35-52 % Mean Corpuscular Volume 89 80-99 FL Mean Corpuscular Hemoglobin 28 25-34 PG Mean Corpuscular Hemoglobin Concent 32 32-36 G/DL Red Cell Distribution Width 12.8 10.0-14.5 % Platelet Count 314 130-400 10^3/uL Mean Platelet Volume 10.6 H 7.4-10.4 FL Neutrophils (%) (Auto) 72 42-75 % Lymphocytes (%) (Auto) 17 12-44 % Monocytes (%) (Auto) 10 0-12 % Eosinophils (%) (Auto) 1 0-10 % Basophils (%) (Auto) 0 0-10 % Neutrophils # (Auto) 10.7 H 1.8-7.8 X 10^3 Lymphocytes # (Auto) 2.5 1.0-4.0 X 10^3 Monocytes # (Auto) 1.6 H 0.0-1.0 X 10^3 Eosinophils # (Auto) 0.1 0.0-0.3 10^3/uL Basophils # (Auto) 0.1 0.0-0.1 10^3/uL Neutrophils % (Manual) 74 % Lymphocytes % (Manual) 20 % Monocytes % (Manual) 1 % Eosinophils % (Manual) 0 % Basophils % (Manual) 0 % Band Neutrophils 5 % Polychromasia SLIGHT Hypochromasia SLIGHT OB - Assessment/Plan/Diagnosis Assessment Assessment: induction of labor Plan Plan: Induction Induction Method: per Misoprostol Protocol Discharge Diagnosis Diagnosis: 30 yo @ 39.2 Abnormal quad screen GBS + PANDA MOREL DO May 19, 2016 12:27
--- NOTE | 2016-05-19 12:32 | OB Labor & Delivery Record ---
L&D History Date of Service Date of Service: May 19, 2016 History Expected Date of Delivery: May 23, 2016 Gestational Age in Weeks: 39 Hx : 3 Hx Para: 1 Complications Events: Routine care Operative Indications (Cesarea: N/A-Vaginal Delivery Intrapartal Events: None L&D Stage1 Stage One Onset of Labor - Date: May 19, 2016 Monitors and Tracing Monitor Mode: Doppler Heart Rate: 120 Monitor Accelerations: Uniform Monitor Decelerations: None Station: -1 Consumer Recruiter Variability: Average (6-10) Short Term Variability: Present Presentation: Vertex Vital Signs VS - Last 72 Hours, by Label 05/18/16 05/18/16 05/18/16 05/18/16 20:15 21:15 21:45 22:15 Temp 98.2 98.0 Pulse 76 76 75 76 Resp 20 20 20 18 B/P (MAP) 127/73 156/74 142/85 142/89 O2 Delivery Room Air Room Air Room Air Room Air 05/18/16 05/18/16 05/18/16 05/18/16 22:45 22:46 23:15 23:45 Pulse 77 76 76 62 Resp 20 20 20 18 B/P (MAP) 148/ 148/89 148/89 137/77 O2 Delivery Room Air Room Air Room Air Room Air 05/19/16 05/19/16 05/19/16 05/19/16 00:15 00:40 01:15 01:30 Temp 98.8 Pulse 60 65 Resp 20 20 B/P (MAP) 149/83 173/88 O2 Delivery Room Air Room Air Room Air Room Air 05/19/16 05/19/16 05/19/16 05/19/16 01:58 02:10 02:37 02:40 Temp 98.8 Pulse 65 64 66 66 Resp 20 20 20 20 B/P (MAP) 149/87 165/87 155/78 132/72 Pulse Ox 98 O2 Delivery Room Air Room Air Room Air Room Air 05/19/16 05/19/16 05/19/16 05/19/16 03:00 03:15 03:30 03:45 Temp 97.6 Pulse 61 61 64 61 Resp 20 20 20 20 B/P (MAP) 132/71 132/71 134/82 134/72 Pulse Ox 98 98 98 97 O2 Delivery Room Air Room Air Room Air Room Air 05/19/16 05/19/16 05/19/16 05/19/16 04:00 04:15 04:31 04:45 Pulse 64 65 71 Resp 18 20 18 B/P (MAP) 128/69 128/66 138/75 Pulse Ox 97 97 97 O2 Delivery Room Air Room Air Room Air Room Air 05/19/16 05/19/16 05/19/16 05/19/16 05:02 05:15 05:45 06:05 Temp 97.3 Pulse 65 72 68 66 Resp 18 20 18 20 B/P (MAP) 137/74 135/72 131/69 138/80 Pulse Ox 97 97 98 98 O2 Delivery Room Air Room Air Room Air Room Air 05/19/16 05/19/16 05/19/16 05/19/16 06:20 06:21 06:40 06:42 Temp 97.3 Pulse 63 63 64 Resp 20 20 18 B/P (MAP) 15/73 135/73 135/73 133/71 Pulse Ox 98 98 98 O2 Delivery Room Air Room Air Room Air 05/19/16 05/19/16 05/19/16 05/19/16 07:04 07:15 07:30 07:45 Temp 98.5 Pulse 67 73 67 69 Resp 18 18 18 16 B/P (MAP) 137/75 134/72 145/79 142/82 Pulse Ox 98 99 99 98 O2 Delivery Room Air Room Air Room Air Room Air 05/19/16 05/19/16 05/19/16 05/19/16 08:00 08:20 08:35 08:50 Pulse 68 69 70 71 Resp 16 16 18 18 B/P (MAP) 144/82 132/82 127/76 137/84 Pulse Ox 97 98 97 97 O2 Delivery Room Air Room Air Room Air Room Air 05/19/16 05/19/16 05/19/16 09:00 09:15 09:30 Pulse 67 66 65 Resp 18 18 20 B/P (MAP) 136/82 138/72 143/78 Pulse Ox 97 97 97 O2 Delivery Room Air Room Air Room Air Rupture of Membranes Spontaneous Ruture of Membrane: No Amniotic Membrane Rupture Time: 744 Amniotic Membrane Fluid Desc.: Clear Induction/Anesthesia Epidural Cath Placement - Time: 223 Progress/Notes AROM performed this morning after epidural was placed. Pitocin started and patient progressed to complete and +1 station with epidural in place and patient still comfortable but feeling pressure L&D Stage2 Stage Two Stage II Date: May 19, 2016 Monitors and Tracing Monitor Mode: External Heart Rate: 120 Monitor Accelerations: Uniform Monitor Decelerations: Variable Consumer Recruiter Variability: Average (6-10) Short Term Variability: Present Position: Right Occiput Anterior Presentation: Vertex Cord Descript/Complications Cord Vessel Description: 3 Vessels Delivery Type Infant Delivery Method: Spontaneous Vaginal Anterior Shoulder: Right Episiotomy/Perineal Laceration Laceraction(s)/Extensions: Yes Episiotomy Description: 1st degree (left labial laceration) Location Modifier: Left Degree (describe repair) repair using 3-0 rapid vicryl Condition of Infant Delivery 1 minute Comment: 8 5 minute Comment: 9 Notes Live female Wt: 8lbs 9 oz Condition of Infant Condition of Infant: Living Exam: No Observed Abnormalities Resuscitation Resuscitation: N/A - Spontaneous Resp L&D Stage3 Stage Three Stage III Date: May 19, 2016 Pictocin Pitocin Administration mu/min: 3 Pitocin ml/hr: 3 Pitocin Administration Comment: 30 mu wide open Placenta Delivery Placenta Delivery: Spontaneous Delivery Summary Summary blood loss >1000ml: No Vaginal blood loss >500ml: No 450 Attending at delivery: Panda Morel DO Condition of Delivery Examined: Cervix Examined, Uterus Explored Post Hemorrhage: No Condition of Mother stable Condition of (s) stable PANDA MOREL DO May 19, 2016 12:32
[2016-05-19] MEDS: IBUPROFEN 600 MG (MOTRIN) TAB PO SCH ×2 (13:47→21:43)
[2016-05-19] MEDS ORDERED: CATHETER FLUSH 10 ML SYR IV SCH (14:00)
[2016-05-19] MEDS: HYDROcodone/APAP 5 MG/325 MG (LORTAB) TAB PO PRN (14:25)
[2016-05-19] MEDS ORDERED: DOCUSATE SODIUM 100 MG (COLACE) CAP PO SCH (21:00)
[2016-05-20] MEDS: HYDROcodone/APAP 5 MG/325 MG (LORTAB) TAB PO PRN (01:12)
[2016-05-20] MEDS: IBUPROFEN 600 MG (MOTRIN) TAB PO SCH ×4 (04:07→21:51)
[2016-05-20 04:09] VITALS: BP 109/56
[2016-05-20 06:48] LABS: BASOPHILS # (AUTO) 0.1 10^3/uL (0.0-0.1); BASOPHILS % (AUTO) 0 % (0-10); EOSINOPHILS # (AUTO) 0.2 10^3/uL (0.0-0.3); EOSINOPHILS % (AUTO) 1 % (0-10); LYMPHOCYTES # (AUTO) 2.7 X 10^3 (1.0-4.0); LYMPHOCYTES % (AUTO) 17 % (12-44); MEAN CORPUSCULAR HEMOGLOBIN 27 PG (25-34); MEAN CORPUSCULAR HGB CONC 31 G/DL (32-36); MEAN CORPUSCULAR VOLUME 90 FL (80-99); MEAN PLATELET VOLUME 10.1 FL (7.4-10.4); MONOCYTES # (AUTO) 1.5 X 10^3 (0.0-1.0); MONOCYTES % (AUTO) 9 % (0-12); NEUTROPHILS # (AUTO) 11.6 X 10^3 (1.8-7.8); NEUTROPHILS % (AUTO) 72 % (42-75); PLATELET COUNT 268 10^3/uL (130-400); RED BLOOD COUNT 2.48 10^6/uL (4.35-5.85); RED CELL DISTRIBUTION WIDTH 12.7 % (10.0-14.5)
[2016-05-20] MEDS ORDERED: FERROUS SULF 325 MG (IRON) TAB PO SCH (07:00)
[2016-05-20 08:00] VITALS: BP 128/78
--- NOTE | 2016-05-20 08:09 | Postpartum Progress Note ---
Note Note Day # 1 Subjective: Patient is without complaints. Ambulating, voiding. Tolerating a regular diet without nausea or vomiting. Normal lochia. Pain is well controlled with oral pain medications. Bottle feeding. Denies dizziness, lightheadedness, shortness of breath, chest pain. Has been up and ambulating somewhat. Objective: VS - Last 72 Hours, by Label 05/18/16 05/18/16 05/18/16 05/18/16 20:15 21:15 21:45 22:15 Temp 98.2 98.0 Pulse 76 76 75 76 Resp 20 20 20 18 B/P (MAP) 127/73 156/74 142/85 142/89 O2 Delivery Room Air Room Air Room Air Room Air 05/18/16 05/18/16 05/18/16 05/18/16 22:45 22:46 23:15 23:45 Pulse 77 76 76 62 Resp 20 20 20 18 B/P (MAP) 148/ 148/89 148/89 137/77 O2 Delivery Room Air Room Air Room Air Room Air 05/19/16 05/19/16 05/19/16 05/19/16 00:15 00:40 01:15 01:30 Temp 98.8 Pulse 60 65 Resp 20 20 B/P (MAP) 149/83 173/88 O2 Delivery Room Air Room Air Room Air Room Air 05/19/16 05/19/16 05/19/16 05/19/16 01:58 02:10 02:37 02:40 Temp 98.8 Pulse 65 64 66 66 Resp 20 20 20 20 B/P (MAP) 149/87 165/87 155/78 132/72 Pulse Ox 98 O2 Delivery Room Air Room Air Room Air Room Air 05/19/16 05/19/16 05/19/16 05/19/16 03:00 03:15 03:30 03:45 Temp 97.6 Pulse 61 61 64 61 Resp 20 20 20 20 B/P (MAP) 132/71 132/71 134/82 134/72 Pulse Ox 98 98 98 97 O2 Delivery Room Air Room Air Room Air Room Air 05/19/16 05/19/16 05/19/16 05/19/16 04:00 04:15 04:31 04:45 Pulse 64 65 71 Resp 18 20 18 B/P (MAP) 128/69 128/66 138/75 Pulse Ox 97 97 97 O2 Delivery Room Air Room Air Room Air Room Air 05/19/16 05/19/16 05/19/16 05/19/16 05:02 05:15 05:45 06:05 Temp 97.3 Pulse 65 72 68 66 Resp 18 20 18 20 B/P (MAP) 137/74 135/72 131/69 138/80 Pulse Ox 97 97 98 98 O2 Delivery Room Air Room Air Room Air Room Air 05/19/16 05/19/16 05/19/16 05/19/16 06:20 06:21 06:40 06:42 Temp 97.3 Pulse 63 63 64 Resp 20 20 18 B/P (MAP) 15/73 135/73 135/73 133/71 Pulse Ox 98 98 98 O2 Delivery Room Air Room Air Room Air 05/19/16 05/19/16 05/19/16 05/19/16 07:04 07:15 07:30 07:45 Temp 98.5 Pulse 67 73 67 69 Resp 18 18 18 16 B/P (MAP) 137/75 134/72 145/79 142/82 Pulse Ox 98 99 99 98 O2 Delivery Room Air Room Air Room Air Room Air 05/19/16 05/19/16 05/19/16 05/19/16 08:00 08:20 08:35 08:50 Pulse 68 69 70 71 Resp 16 16 18 18 B/P (MAP) 144/82 132/82 127/76 137/84 Pulse Ox 97 98 97 97 O2 Delivery Room Air Room Air Room Air Room Air 05/19/16 05/19/16 05/19/16 05/19/16 09:00 09:15 09:30 09:45 Pulse 67 66 65 67 Resp 18 18 20 20 B/P (MAP) 136/82 138/72 143/78 133/74 Pulse Ox 97 97 97 97 O2 Delivery Room Air Room Air Room Air Room Air 05/19/16 05/19/16 05/19/16 05/19/16 10:00 10:15 10:30 10:45 Pulse 67 64 67 74 Resp 20 20 20 20 B/P (MAP) 135/74 138/77 135/81 142/87 Pulse Ox 97 97 97 97 O2 Delivery Room Air Room Air Room Air Room Air 05/19/16 05/19/16 05/19/16 05/19/16 11:00 11:15 11:30 11:40 Temp 97.1 97.3 Pulse 85 85 99 100 Resp 20 20 20 20 B/P (MAP) 149/92 151/92 192/144 144/70 Pulse Ox 97 O2 Delivery Room Air Room Air Room Air Room Air 05/19/16 05/19/16 05/19/16 05/19/16 11:55 12:00 12:10 12:25 Temp 97.7 98.5 98.4 99.0 Pulse 90 90 87 83 Resp 18 20 20 20 B/P (MAP) 136/79 136/79 136/78 129/64 O2 Delivery Room Air Room Air Room Air Room Air 05/19/16 05/19/16 05/19/16 05/20/16 13:10 17:40 20:00 04:09 Temp 98.5 97.1 97.5 98.1 Pulse 76 76 76 59 Resp 20 18 18 18 B/P (MAP) 132/75 119/70 119/67 109/56 O2 Delivery Room Air Room Air Physical Exam: General - Alert and oriented, no apparent distress Abdomen - Soft, appropriately tender to palpation, non-distended, fundus firm at umbilicus Extremities - no edema, negative Olu's bilaterally Laboratory Tests Test 05/20/16 06:20 Range/Units White Blood Count 16.0 H 4.3-11.0 10^3/uL Red Blood Count 2.48 L 4.35-5.85 10^6/uL Hemoglobin 6.8 *L 11.5-16.0 G/DL Hematocrit 22 L 35-52 % Mean Corpuscular Volume 90 80-99 FL Mean Corpuscular Hemoglobin 27 25-34 PG Mean Corpuscular Hemoglobin Concent 31 L 32-36 G/DL Red Cell Distribution Width 12.7 10.0-14.5 % Platelet Count 268 130-400 10^3/uL Mean Platelet Volume 10.1 7.4-10.4 FL Neutrophils (%) (Auto) 72 42-75 % Lymphocytes (%) (Auto) 17 12-44 % Monocytes (%) (Auto) 9 0-12 % Eosinophils (%) (Auto) 1 0-10 % Basophils (%) (Auto) 0 0-10 % Neutrophils # (Auto) 11.6 H 1.8-7.8 X 10^3 Lymphocytes # (Auto) 2.7 1.0-4.0 X 10^3 Monocytes # (Auto) 1.5 H 0.0-1.0 X 10^3 Eosinophils # (Auto) 0.2 0.0-0.3 10^3/uL Basophils # (Auto) 0.1 0.0-0.1 10^3/uL Assessment: 30 y/o post- day # 1, status post spontaneous vaginal delivery following term IOL. Recovering well, hemodynamically stable Acute blood loss anemia (Hgb 6.8, was 8.6 antepartum) Plan: Routine care. Reviewed vitals, symptoms. Hgb low antepartum, now 6.8. Will start TID iron supplementation. Redraw in AM to assess for further drop with blood loss. Discussed transfusion with patient however she is asymptomatic and pulse is 50s-70s with stable BP. If symptomatic or vital signs change will consider transfusion at that time. Encourage ambulation. Plan for discharge tomorrow. Vitals - Labs Vital Signs - I&O Vital Signs Date Time Temp Pulse Resp B/P (MAP) Pulse Ox O2 Delivery O2 Flow Rate FiO2 05/20/16 04:09 98.1 59 18 109/56 05/19/16 20:00 97.5 76 18 119/67 05/19/16 17:40 97.1 76 18 119/70 Room Air 05/19/16 13:10 98.5 76 20 132/75 Room Air 05/19/16 12:25 99.0 83 20 129/64 Room Air 05/19/16 12:10 98.4 87 20 136/78 Room Air 05/19/16 12:00 98.5 90 20 136/79 Room Air 05/19/16 11:55 97.7 90 18 136/79 Room Air 05/19/16 11:40 97.3 100 20 144/70 Room Air 05/19/16 11:30 97.1 99 20 192/144 Room Air 05/19/16 11:15 85 20 151/92 Room Air 05/19/16 11:00 85 20 149/92 97 Room Air 05/19/16 10:45 74 20 142/87 97 Room Air 05/19/16 10:30 67 20 135/81 97 Room Air 05/19/16 10:15 64 20 138/77 97 Room Air 05/19/16 10:00 67 20 135/74 97 Room Air 05/19/16 09:45 67 20 133/74 97 Room Air 05/19/16 09:30 65 20 143/78 97 Room Air 05/19/16 09:15 66 18 138/72 97 Room Air 05/19/16 09:00 67 18 136/82 97 Room Air 05/19/16 08:50 71 18 137/84 97 Room Air 05/19/16 08:35 70 18 127/76 97 Room Air 05/19/16 08:20 69 16 132/82 98 Room Air Labs Laboratory Tests 05/20/16 06:20: White Blood Count 16.0H, Red Blood Count 2.48L, Hemoglobin 6.8*L, Hematocrit 22L , Mean Corpuscular Volume 90, Mean Corpuscular Hemoglobin 27, Mean Corpuscular Hemoglobin Concent 31L, Red Cell Distribution Width 12.7, Platelet Count 268, Mean Platelet Volume 10.1, Neutrophils (%) (Auto) 72, Lymphocytes (%) (Auto) 17 , Monocytes (%) (Auto) 9, Eosinophils (%) (Auto) 1, Basophils (%) (Auto) 0, Neutrophils # (Auto) 11.6H, Lymphocytes # (Auto) 2.7, Monocytes # (Auto) 1.5H, Eosinophils # (Auto) 0.2, Basophils # (Auto) 0.1 BISI PRESSLEY MD May 20, 2016 08:09
[2016-05-20] MEDS ORDERED: DOCUSATE CALCIUM 240 MG (SURFAK) CAP PO SCH (09:00)
[2016-05-20] MEDS: PRENATAL VITAMIN 1 EA TAB PO SCH (09:22)
[2016-05-20] MEDS: FERROUS SULF 325 MG (IRON) TAB PO SCH ×2 (09:22→18:15)
[2016-05-20 12:00] VITALS: BP 135/85
--- NOTE | 2016-05-20 12:08 | Anesthesia-Regional Post-Op ---
Regional Patient Condition Mental Status: Alert, Oriented x3 Circulation: Same as Pre-Op Headache: Absent Sensation: Full Recovery Motor Block: Absent Post Op Complications Complications None Follow Up Care/Instructions Patient Instructions None needed. Anesthesia/Patient Condition Patient is doing well, no complaints, stable vital signs, no apparent adverse anesthesia problems. No complications reported per nursing. [place] [facility] [place] No ALEXANDER ZIEGLER CRNA May 20, 2016 12:08
[2016-05-20 18:29] VITALS: BP 126/86
[2016-05-21 00:35] VITALS: BP 131/81
[2016-05-21 04:35] VITALS: BP 114/69
[2016-05-21] MEDS: IBUPROFEN 600 MG (MOTRIN) TAB PO SCH ×3 (04:37→15:29)
[2016-05-21] MEDS: HYDROcodone/APAP 5 MG/325 MG (LORTAB) TAB PO PRN (04:38)
[2016-05-21 06:04] LABS: BASOPHILS # (AUTO) 0.1 10^3/uL (0.0-0.1); BASOPHILS % (AUTO) 0 % (0-10); EOSINOPHILS # (AUTO) 0.2 10^3/uL (0.0-0.3); EOSINOPHILS % (AUTO) 1 % (0-10); LYMPHOCYTES % (AUTO) 16 % (12-44); MEAN CORPUSCULAR HEMOGLOBIN 28 PG (25-34); MEAN CORPUSCULAR HGB CONC 31 G/DL (32-36); MEAN CORPUSCULAR VOLUME 90 FL (80-99); MEAN PLATELET VOLUME 9.7 FL (7.4-10.4); MONOCYTES # (AUTO) 1.3 X 10^3 (0.0-1.0); MONOCYTES % (AUTO) 10 % (0-12); NEUTROPHILS # (AUTO) 9.5 X 10^3 (1.8-7.8); NEUTROPHILS % (AUTO) 73 % (42-75); PLATELET COUNT 282 10^3/uL (130-400); RED BLOOD COUNT 2.37 10^6/uL (4.35-5.85); RED CELL DISTRIBUTION WIDTH 12.9 % (10.0-14.5); WHITE BLOOD COUNT 12.9 10^3/uL (4.3-11.0)
[2016-05-21] MEDS ORDERED: DOCUSATE SODIUM 100 MG (COLACE) CAP PO ONE (09:51)
[2016-05-21] MEDS: PRENATAL VITAMIN 1 EA TAB PO SCH (10:09)
[2016-05-21] MEDS: FERROUS SULF 325 MG (IRON) TAB PO SCH (10:10)
[2016-05-21 10:11] VITALS: BP 123/75
[2016-05-21 13:38] VITALS: BP 139/77
--- NOTE | 2016-05-21 15:02 | Discharge Inst-Women's Service ---
Discharge Inst-Women's Serv Depart Medication/Instructions New, Converted or Re-Newed RX: RX on Chart Consults/Follow Up Additional Follow Up: Yes Activity Activity: Activity as Tolerated Driving Instructions: No Driving for 1 Week NO SMOKING: NO SMOKING Nothing Inside Vagina: No Douching, No [place], No Tampons Diet Discharge Diet: No Restrictions Symptoms to Report to : Bleeding Excessive, Pain Increased, Fever Over 101 Degrees F, Vaginal Bleeding Increase, Questions/Concerns For Any Problems or Questions: Contact Your Physician Skin/Wound Care Bathing Instructions: Shower (x 2 weeks) PANDA MOREL DO May 21, 2016 3:02 pm
[2016-05-21] MEDS ORDERED: HYDR-3812 PO (15:03)
[2016-05-21] MEDS ORDERED: DOCU100C37 PO (15:03)
[2016-05-21] MEDS ORDERED: IBUP-1773 PO (15:03)
[2016-05-21] MEDS ORDERED: FERR-74 PO (15:03)
--- NOTE | 2016-05-21 15:09 | Progress Note-Standard ---
Standard Progress Note Progress Notes/Assess & Plan Progress/Assessment & Plan Patient doing well PPD2 NVD. NO concerns voiced today. Denies lightheadedness , dizzyness. Ambulating without difficulty Vital Sign - Last 24 Hours 05/20/16 05/21/16 05/21/16 05/21/16 18:29 00:35 04:35 10:11 Temp 99.0 97.3 96.7 96.9 Pulse 77 73 74 81 Resp 18 18 18 18 B/P (MAP) 126/86 131/81 114/69 123/75 Pulse Ox 100 98 97 98 O2 Delivery Room Air Room Air Room Air Room Air 05/21/16 13:38 Temp 97.3 Pulse 78 Resp 18 B/P (MAP) 139/77 Pulse Ox 98 O2 Delivery Room Air Uterine fundus firm and below umbilicus Assessment: 30 y/o post- day # 2, status post spontaneous vaginal delivery following term IOL. Recovering well, hemodynamically stable Acute blood loss anemia (Hgb 6.6, was 8.6 antepartum) Plan: Routine care. Anemia precautions reviewed Encourage ambulation. Plan for discharge today PANDA MOREL DO May 21, 2016 3:09 pm
[2016-05-21] MEDS ORDERED: TETANUS,DIPTH,PERTUSS P/F (BOOSTRIX) 0.5 ML VIAL IM ONE (16:16)
[2016-05-21 16:40] VITALS: BP 139/77
== END 2016-05-21 16:30 | disposition home or self-care (01) | DRG 775 ==
LOC: LDRP 20:00
PROVIDERS: ADMIT Obstetrics & Gynecology; ATTEND Obstetrics & Gynecology
PROC: 3E0P7GC Introduction of Other Therapeutic Substance into Female Reproductive, Via Natural or Artificial Opening (ICD-10-PCS; 2016-05-18)
PROC: 0HQ9XZZ Repair Perineum Skin, External Approach (ICD-10-PCS; principal; 2016-05-19)
PROC: 10E0XZZ Delivery of Products of Conception, External Approach (ICD-10-PCS; 2016-05-19)
DX: O99.824 Streptococcus B carrier state complicating childbirth (principal); O70.0 First degree perineal laceration during delivery; O90.81 Anemia of the puerperium; D62 Acute posthemorrhagic anemia; Z23 Encounter for immunization; Z3A.39 39 weeks gestation of pregnancy; Z37.0 Single live birth
CPT/HCPCS: 36415; 85007; 85025; 85027; 86850; 86900; 86901; 90715